=== PATIENT | male | born 1985 ===

== ENCOUNTER 2018-11-19 16:34 | Outpatient (REF) | payer BC, SELFPAY ==
[2018-11-19 20:33] LABS: Abs Immature Grans 0.01 k/cumm (0.0-0.09); Absolute Basophil Count 0.01 k/cumm (0.0-0.2); Absolute Eosinophil Count 0.29 k/cumm (0.0-0.7); Absolute Lymphocyte Count 1.13 k/cumm (1.2-3.4); Absolute Neutrophil Count 4.22 k/cumm (1.2-6.7); Basophils % 0.2; Eosinophils % 4.7; HCT 47.2 % (40.0-50.0); HGB 16.3 g/dL (13.5-17.5); Immature Grans % 0.2; Lymphocytes % 18.3; Mean Corp. HGB Concentration 34.5 g/dL (32.0-36.0); Mean Corpuscular Hemoglobin 30.4 pg (27.0-33.0); Mean Corpuscular Volume 88.1 fL (80-95); Mean Platelet Volume 11.3 fL (8.0-11.0); Monocytes % 8.1; Neutrophils % 68.5; Platelet Count 171 x1000/uL (130-400); RBC 5.36 m/cumm (4.50-6.00); RBC Distribution Width 12.7 % (11.8-14.1); White Blood Cell Count 6.16 k/cumm (4.4-10.8)
[2018-11-19 21:28] LABS: ALT 32 U/L (12-78); AST 21 U/L (15-37); Albumin 4.8 g/dL (3.4-5.0); Alkaline Phosphatase 70 U/L (46-116); Anion Gap 7.9 mmol/L (3-11); BUN 23 mg/dL (7-18); Bilirubin, Total 0.8 mg/dL (0.2-1.0); CO2 32.1 mmol/L (21.0-32.0); CREATININE 1.19 mg/dL (0.70-1.30); Calcium 9.6 mg/dL (8.5-10.1); Chloride 102 mmol/L (98-107); Glucose 97 mg/dL (70-100); Potassium 4.3 mmol/L (3.5-5.1); Sodium 142 mmol/L (136-145); Total Protein 7.7 g/dL (6.4-8.2); Vitamin B12 556 pg/mL (193-986)
== END 2018-11-19 16:54 ==
LOC: NCHCN 16:34
PROVIDERS: Visit Provider Nurse Practitioner Family
DX: F41.8 Other specified anxiety disorders (principal); R68.89 Other general symptoms and signs
CPT/HCPCS: 80053; 82607; 85025

== ENCOUNTER 2020-08-15 19:47 | Outpatient (REF) | payer BC, SELFPAY ==
[2020-08-15 22:30] LABS: BUN 24 mg/dL (7-18); CREATININE 1.11 mg/dL (0.70-1.30)
[2020-08-17 10:05] LABS: HBs Antibody, Quant 300.8 mIU/mL (See Note); Hepatitis B Surface Ab Positive (See Note)
[2020-08-17 10:24] LABS: Hepatitis B Surface Ag Negative (Negative)
[2020-08-17 10:51] LABS: Syphilis Serology (RPR) Negative (Negative)
[2020-08-17 11:06] LABS: Hepatitis C Ab w Rflx HCV PCR Negative (Negative)
[2020-08-17 11:15] LABS: Hep B Core Antibody Negative (Negative)
[2020-08-17 13:06] LABS: HIV-1/2 Ag & Ab Screen Negative (Negative)
[2020-08-17 15:03] LABS: Chlamydia Result Negative (Negative); GC Result Negative (Negative)
== END 2020-08-15 20:07 ==
LOC: NCHCN 19:47
PROVIDERS: Visit Provider Registered Nurse
DX: Z11.3 Encounter for screening for infections with a predominantly sexual mode of transmission (principal); Z11.4 Encounter for screening for human immunodeficiency virus [HIV]; Z11.59 Encounter for screening for other viral diseases
CPT/HCPCS: 84520; 86704; 86706; 86803; 87340; 87389; 87491; 87591; 82565; 86592

== ENCOUNTER 2020-12-14 13:29 | Outpatient (REF) | payer BC, SELFPAY ==
[2020-12-14 14:30] LABS: BUN 30 mg/dL (7-18)
[2020-12-17 13:03] LABS: HIV-1/2 Ag & Ab Screen Negative (Negative)
[2020-12-17 15:26] LABS: Chlamydia Result Negative (Negative); GC Result Negative (Negative)
== END 2020-12-14 13:30 | disposition home or self-care (01) ==
LOC: NCHCN 13:29
PROVIDERS: Visit Provider Registered Nurse
DX: Z72.53 High risk bisexual behavior (principal); Z11.3 Encounter for screening for infections with a predominantly sexual mode of transmission; Z11.4 Encounter for screening for human immunodeficiency virus [HIV]
CPT/HCPCS: 84520; 87389; 87491; 87591; 82565

== ENCOUNTER 2021-03-14 16:45 | Outpatient (REF) | payer BC, SELFPAY ==
[2021-03-14 14:13] LABS: Anion Gap 7.5 mmol/L (3-11); BUN 20 mg/dL (7-18); CO2 30.5 mmol/L (21.0-32.0); CREATININE 1.1 mg/dL (0.70-1.30); Calcium 9.8 mg/dL (8.5-10.1); Chloride 104 mmol/L (98-107); Glucose 89 mg/dL (74-106); Potassium 4.8 mmol/L (3.5-5.1); Sodium 142 mmol/L (136-145)
[2021-03-15 11:58] LABS: HIV-1/2 Ag & Ab Screen Negative (Negative)
[2021-03-15 15:24] LABS: Chlamydia Result Negative (Negative); GC Result Negative (Negative)
== END 2021-03-14 16:46 | disposition home or self-care (01) ==
LOC: NCHCN 16:45
PROVIDERS: Visit Provider Registered Nurse
DX: Z11.4 Encounter for screening for human immunodeficiency virus [HIV] (principal); Z20.2 Contact with and (suspected) exposure to infections with a predominantly sexual mode of transmission; Z51.81 Encounter for therapeutic drug level monitoring
CPT/HCPCS: 80048; 87389; 87491; 87591

== ENCOUNTER 2021-07-03 15:34 | Outpatient (REF) | payer BC, SELFPAY ==
[2021-07-03 22:24] LABS: Anion Gap 6.5 mmol/L (3-11); BUN 17 mg/dL (7-18); CO2 32.5 mmol/L (21.0-32.0); Calcium 9.2 mg/dL (8.5-10.1); Chloride 103 mmol/L (98-107); Glucose 85 mg/dL (74-106); Potassium 4.4 mmol/L (3.5-5.1); Sodium 142 mmol/L (136-145)
[2021-07-05 10:50] LABS: HIV-1/2 Ag & Ab Screen Negative (Negative)
[2021-07-05 14:45] LABS: Chlamydia Result Negative (Negative); GC Result Negative (Negative)
== END 2021-07-03 15:35 | disposition home or self-care (01) ==
LOC: NCHCN 15:34
PROVIDERS: Visit Provider Registered Nurse
DX: Z11.4 Encounter for screening for human immunodeficiency virus [HIV] (principal); I95.1 Orthostatic hypotension; Z11.3 Encounter for screening for infections with a predominantly sexual mode of transmission
CPT/HCPCS: 80048; 87389; 87491; 87591

== ENCOUNTER 2021-09-25 16:29 | Outpatient (REF) | payer BC, SELFPAY ==
[2021-09-25 21:10] LABS: Anion Gap 7.1 mmol/L (3-11); BUN 26 mg/dL (7-18); CO2 30.9 mmol/L (21.0-32.0); Calcium 9.6 mg/dL (8.5-10.1); Chloride 104 mmol/L (98-107); Glucose 79 mg/dL (74-106); Potassium 4.3 mmol/L (3.5-5.1); Sodium 142 mmol/L (136-145)
[2021-09-27 10:37] LABS: HIV-1/2 Ag & Ab Screen Negative (Negative)
[2021-09-27 14:55] LABS: Chlamydia Result Negative (Negative); GC Result Negative (Negative)
== END 2021-09-25 16:30 | disposition home or self-care (01) ==
LOC: NCHCN 16:29
PROVIDERS: Visit Provider Registered Nurse
DX: Z51.81 Encounter for therapeutic drug level monitoring (principal); Z72.53 High risk bisexual behavior; Z11.4 Encounter for screening for human immunodeficiency virus [HIV]; Z11.3 Encounter for screening for infections with a predominantly sexual mode of transmission
CPT/HCPCS: 80048; 87389; 87491; 87591

== ENCOUNTER 2021-12-18 21:08 | Outpatient (REF) | payer OTHER, SELFPAY ==
[2021-12-18 21:11] LABS: Anion Gap 8.1 mmol/L (3-11); BUN 18 mg/dL (7-18); CO2 31.9 mmol/L (21.0-32.0); CREATININE 1.4 mg/dL (0.70-1.30); Calcium 9.1 mg/dL (8.5-10.1); Chloride 102 mmol/L (98-107); Estimated GFR 57.67 (mL/min/1.73m2); Glucose 81 mg/dL (74-106); Potassium 4.2 mmol/L (3.5-5.1); Sodium 142 mmol/L (136-145)
[2021-12-20 10:40] LABS: HIV-1/2 Ag & Ab Screen Negative (Negative)
== END 2021-12-18 21:09 | disposition home or self-care (01) ==
LOC: NCHCN 21:08
PROVIDERS: Visit Provider Registered Nurse
DX: Z11.4 Encounter for screening for human immunodeficiency virus [HIV] (principal); Z51.81 Encounter for therapeutic drug level monitoring
CPT/HCPCS: 80048; 87389

== ENCOUNTER 2022-01-09 16:07 | Outpatient (REF) | payer OTHER, SELFPAY ==
[2022-01-09 15:57] LABS: Anion Gap 6.8 mmol/L (3-11); BUN 22 mg/dL (7-18); CO2 31.2 mmol/L (21.0-32.0); CREATININE 1.1 mg/dL (0.70-1.30); Calcium 9.3 mg/dL (8.5-10.1); Chloride 101 mmol/L (98-107); Glucose 93 mg/dL (74-106); Potassium 4.2 mmol/L (3.5-5.1); Sodium 139 mmol/L (136-145)
== END 2022-01-09 16:08 | disposition home or self-care (01) ==
LOC: NCHCN 16:07
PROVIDERS: Visit Provider Registered Nurse
DX: R94.4 Abnormal results of kidney function studies (principal)
CPT/HCPCS: 80048

== ENCOUNTER 2022-04-03 15:48 | Outpatient (REF) | payer OTHER, SELFPAY ==
[2022-04-03 19:08] LABS: Anion Gap 7.3 mmol/L (3-11); BUN 32 mg/dL (7-18); CO2 31.7 mmol/L (21.0-32.0); CREATININE 1.1 mg/dL (0.70-1.30); Calcium 9.6 mg/dL (8.5-10.1); Calculated LDL 110 mg/dL (<100); Chloride 102 mmol/L (98-107); Cholesterol 168 mg/dL (<200); Estimated GFR 89.78 (mL/min/1.73m2); Glucose 87 mg/dL (74-106); HDL Cholesterol 42 mg/dL (40-60); Potassium 4.2 mmol/L (3.5-5.1); Sodium 141 mmol/L (136-145); Triglyceride 83 mg/dL (<150)
[2022-04-06 13:56] LABS: HIV-1/2 Ag & Ab Screen Negative (Negative)
[2022-04-06 15:21] LABS: Chlamydia Result Negative (Negative); GC Result Negative (Negative)
== END 2022-04-03 15:49 | disposition home or self-care (01) ==
LOC: NCHCN 15:48
PROVIDERS: Visit Provider Registered Nurse
DX: Z51.81 Encounter for therapeutic drug level monitoring (principal); Z11.4 Encounter for screening for human immunodeficiency virus [HIV]; Z72.53 High risk bisexual behavior
CPT/HCPCS: 80048; 80061; 87389; 87491; 87591

== ENCOUNTER 2022-07-02 14:37 | Outpatient (REF) | payer OTHER, SELFPAY ==
[2022-07-02 14:33] LABS: Anion Gap 8.6 mmol/L (3-11); BUN 23 mg/dL (7-18); CO2 28.4 mmol/L (21.0-32.0); CREATININE 1.1 mg/dL (0.70-1.30); Calcium 9.6 mg/dL (8.5-10.1); Chloride 102 mmol/L (98-107); Estimated GFR 89.22 (mL/min/1.73m2); Glucose 93 mg/dL (74-106); Potassium 4.3 mmol/L (3.5-5.1); Sodium 139 mmol/L (136-145)
[2022-07-03 10:35] LABS: HIV-1/2 Ag & Ab Screen Negative (Negative)
== END 2022-07-02 14:38 | disposition home or self-care (01) ==
LOC: NCHCN 14:37
PROVIDERS: Visit Provider Registered Nurse
DX: M54.2 Cervicalgia (principal); Z72.53 High risk bisexual behavior; Z51.81 Encounter for therapeutic drug level monitoring; Z11.4 Encounter for screening for human immunodeficiency virus [HIV]
CPT/HCPCS: 80048; 87389

== ENCOUNTER 2022-10-01 14:10 | Outpatient (REF) | payer OTHER, SELFPAY ==
[2022-10-01 15:34] LABS: Anion Gap 6.3 mmol/L (3-11); BUN 22 mg/dL (7-18); CO2 30.7 mmol/L (21.0-32.0); CREATININE 1.2 mg/dL (0.70-1.30); Calcium 9.4 mg/dL (8.5-10.1); Chloride 103 mmol/L (98-107); Estimated GFR 80.38 (mL/min/1.73m2); Glucose 127 mg/dL (74-106); Potassium 4.1 mmol/L (3.5-5.1); Sodium 140 mmol/L (136-145)
[2022-10-02 10:27] LABS: HIV-1/2 Ag & Ab Screen Negative (Negative)
== END 2022-10-01 14:11 | disposition home or self-care (01) ==
LOC: NCHCN 14:10
PROVIDERS: Visit Provider Registered Nurse
DX: Z72.53 High risk bisexual behavior (principal); Z11.4 Encounter for screening for human immunodeficiency virus [HIV]; Z51.81 Encounter for therapeutic drug level monitoring
CPT/HCPCS: 80048; 87389

== ENCOUNTER 2023-10-30 14:55 | Outpatient (REF) | payer OTHER, SELFPAY ==
[2023-10-30 14:46] LABS: Abs Immature Grans 0.01 10^3/uL (0.0-0.06); Absolute Basophil Count 0.01 10^3/uL (0.0-0.2); Absolute Eosinophil Count 0.04 10^3/uL (0.0-0.7); Absolute Lymphocyte Count 0.81 10^3/uL (1.2-3.4); Absolute Monocyte Count 0.33 10^3/uL (0.1-0.8); Absolute Neutrophil Count 4.75 10^3/uL (1.2-6.7); Basophils % 0.2; Eosinophils % 0.7; HCT 46.7 % (40.0-50.0); Immature Grans % 0.2; Lymphocytes % 13.6; MCHC 34.3 % (32.0-36.0); MCV 88 fL (80-95); MPV 10.7 fL (8.0-11.0); Monocytes % 5.5; Neutrophils % 79.8; Platelet Count 189 10^3/uL (130-400); RBC 5.33 10^6/uL (4.36-5.78); RDW 12.2 % (11.8-14.1); WBC 5.95 10^3/uL (4.4-10.8)
[2023-10-30 15:31] LABS: TSH (W/Ref FT4) 2.48 uIU/mL (0.36-3.74)
[2023-10-30 16:10] LABS: ALT 37 U/L (16-63); AST 22 U/L (15-37); Albumin 4.9 g/dL (3.4-5.0); Alkaline Phosphatase 64 U/L (46-116); Anion Gap 11.8 mmol/L (3-11); BUN 26 mg/dL (7-18); Bilirubin, Total 0.7 mg/dL (0.2-1.0); CO2 28.2 mmol/L (21.0-32.0); Chloride 103 mmol/L (98-107); Estimated GFR 99.41 (mL/min/1.73m2); Glucose 105 mg/dL (74-106); Potassium 4.2 mmol/L (3.5-5.1); Sodium 143 mmol/L (136-145)
[2023-10-30 17:13] LABS: Vitamin D 25 Total 111.7 ng/mL (30-100)
== END 2023-10-30 14:56 | disposition home or self-care (01) ==
LOC: NCHCN 14:55
PROVIDERS: Visit Provider Family Medicine
DX: F41.8 Other specified anxiety disorders (principal); E67.3 Hypervitaminosis D
CPT/HCPCS: 80053; 82306; 84443; 85025